=== PATIENT | male | born 1995 | race Caucasian/White ===

== ENCOUNTER 2018-06-01 23:49 | Emergency (ER) | payer BC ==
[~2018-06-01] VITALS: Ht 175.3 cm; Wt 74.8 kg
--- NOTE | 2018-06-01 23:50 | NUR ---
Seen and evaluated by Dr. kauffman at [facility]
--- NOTE | 2018-06-01 23:50 | NUR ---
[facility] d/t overdose of either heroine or fentanyl. Narcan was administered by paramedics prior to admission. He is A, O/4, on RA, able to move his extremities without difficulty.
--- NOTE | 2018-06-01 23:55 | NUR ---
Labs drawn, urinal offered for urine sample but pt unable to void at this time. EKG in progress
--- NOTE | 2018-06-02 | NUR ---
Pt constantly on the phone, unable to provide urine sample at this time. Maintains poor eye contact, constantly on his phone, denies any SI.
[2018-06-02 00:05] LABS: BASOPHILS # (AUTO) 0.1 /CMM (0.0-0.2); EOSINOPHILS % (AUTO) 4.1 % (0.0-6.0); HEMATOCRIT 41 % (39-51); HEMOGLOBIN 13.9 g/dL (13.5-17.5); LYMPHOCYTES # (AUTO) 2.7 /CMM (0.8-4.8); LYMPHOCYTES % (AUTO) 39.7 % (20.0-44.0); MEAN CORPUSCULAR HGB CONC 34 g/dl (31.0-36.0); MEAN CORPUSCULAR VOLUME 87 fL (80-96); MONOCYTES # (AUTO) 0.5 /CMM (0.1-1.30); MONOCYTES % (AUTO) 7.7 % (2.0-12.0); NEUTROPHILS # (AUTO) 3.2 /CMM (1.8-8.9); NEUTROPHILS % (AUTO) 47.5 % (43.0-81.0); PLATELET COUNT (AUTO) 216 /CMM (150-450); RED BLOOD CELL COUNT(AUTO) 4.75 MIL/uL (4.5-6.0); WHITE BLOOD COUNT (AUTO) 6.8 K/uL (4.3-11.0)
[2018-06-02 00:16] LABS: CALCIUM, SERUM 8.8 mg/dL (8.5-10.1); CARBON DIOXIDE 32 mmol/L (21-32); CHLORIDE 103 mmol/L (98-107); GLUCOSE 110 mg/dL (74-106); POTASSIUM 3.6 mmol/L (3.5-5.1); SODIUM SERUM 140 mmol/L (136-145); UREA NITROGEN, BLOOD 16 mg/dL (7-18)
[2018-06-02 00:28] LABS: ALANINE AMINOTRANSFERASE 42 U/L (12-78); ALCOHOL, BLOOD < 3 mg/dL (0-0); ALKALINE PHOSPHATASE 95 U/L (46-116); ASPARTATE AMINOTRANSFERASE 27 U/L (15-37); BILIRUBIN,DIRECT 0.1 mg/dL (0.0-0.2); BILIRUBIN,TOTAL 0.4 mg/dL (0.2-1.0); TOTAL PROTEIN, SERUM 7.1 g/dL (6.4-8.2)
[2018-06-02 00:32] LABS: ACETAMINOPHEN < 2 ug/ml (10-30); SALICYLATE 2.5 mg/dL (2.8-20.0)
--- NOTE | 2018-06-02 00:35 | NUR ---
Pt wants to leave and smoke outside; encouraged to stay in his room.
--- NOTE | 2018-06-02 00:39 | NUR ---
Pt wants to leave AMA, states "you can't get my urine same and charge my insurance thousands of dollars for it."Dr. Sinha notified. Pt signed AMA form.
[2018-06-02 00:50] VITALS: BP 148/81
--- NOTE | 2018-06-02 00:50 | NUR ---
Patient does not wish to proceed with medical care recommended by Dr. Sinha. Patient given information related to possible complications, up to and including , which could occur as a result of leaving the hospital at this time. Patient verbalizes understanding of risks involved due to leaving against medical advice. Patient has signed AMA form. Pt ambulatory with a steady gait
== END 2018-06-02 00:51 | disposition left against medical advice (07) ==
LOC: ER 23:49
DX: T40.4X1A Poisoning by other synthetic narcotics, accidental (unintentional), initial encounter (principal); T40.1X1A Poisoning by heroin, accidental (unintentional), initial encounter; G47.00 Insomnia, unspecified; F10.10 Alcohol abuse, uncomplicated; F17.200 Nicotine dependence, unspecified, uncomplicated; R94.31 Abnormal electrocardiogram [ECG] [EKG]; Y90.0 Blood alcohol level of less than 20 mg/100 ml; Y92.89 Other specified places as the place of occurrence of the external cause
CPT/HCPCS: 36415; 80048-TC; 80076-TC; 84484-TC; 85025-TC; G0480